=== PATIENT | female | born 1960 | race Caucasian/White ===

== ENCOUNTER 2018-02-07 07:54 | Day surgery (SDC) | payer OTHER ==
--- NOTE | 2018-02-05 11:40 | EKG ---
Test Date: 2018-02-05 Test Time: 10:39:55 Regulatory Assistant: CHELSIE MEASUREMENT RESULTS: Intervals: Rate: 67 NC: 128 QRSD: 80 QT: 446 QTc: 471 [place]: P: 54 NC: 128 QRS: 18 T: 20 INTERPRETIVE STATEMENTS: Normal sinus rhythm Normal ECG Compared to ECG 06/03/2006 13:14:24 Sinus bradycardia no longer present Electronically Signed On 02-05-18 11:39:23 PHOTOGRAMMETRY AIRPLANE PILOT by Perry Jay
[2018-02-07] MEDS: Ringers Lactate 1,000 ML IV ONE ×2 (08:36→10:23)
[2018-02-07] MEDS ORDERED: OXYMETAZOLINE HCL 0.05% 15ML NAS ONE ×4 (08:40→10:27)
[2018-02-07] MEDS ORDERED: LIDOCAINE 2% MPF 5 ML VIAL ONE (10:11)
[2018-02-07] MEDS ORDERED: FENTANYL CITR 250 MCG/5 ML ONE (10:11)
[2018-02-07] MEDS ORDERED: DEXAMETHASONE 10 MG/ML VIAL ONE (10:11)
[2018-02-07] MEDS ORDERED: ROCURONIUM 50 MG/5 ML VIAL IV ONE (10:11)
[2018-02-07] MEDS ORDERED: PROPOFOL 200 MG/20 ML VIAL IV ONE (10:11)
[2018-02-07] MEDS ORDERED: MIDAZOLAM HCL 2 MG/2 ML INJ ONE (10:11)
[2018-02-07] MEDS ORDERED: LIDOCAINE 1% W/EPI 1:100,000 MDV 50 ML VIAL ONE (10:27)
[2018-02-07] MEDS ORDERED: NA CHLORIDE 0.9% 250 ML ONE (10:27)
[2018-02-07] MEDS ORDERED: GLYCOPYRROLATE 0.2 MG/ML SYR ONE ×3 (11:04→11:35)
[2018-02-07] MEDS ORDERED: Ringers Lactate 1,000 ML IV ONE (11:12)
[2018-02-07] MEDS ORDERED: EPINEPHRINE/PF 1 MG/ML AMP ONE (11:34)
[2018-02-07] MEDS ORDERED: NEOSTIGMINE 1 MG/ML -5 ML SYRINGE ONE (11:41)
--- NOTE | 2018-02-07 11:44 | P.BOP ---
Preoperative diagnosis: septal deviation, turbinate hypertrophy, nasal obstruction Postoperative diagnosis: same Primary procedure: septoplasty Secondary procedure: ITR School Librarian: NONE,NONE Estimated blood loss: 20ml Specimen: septal bone/cartilage Anesthesia: General Implants: none Fluids & blood products: crystalloid 700ml Transferred to: Recovery Room Condition: Good
[2018-02-07] MEDS: MORPHINE 4 MG/ML SYR ONE ×4 (11:57→12:12)
[2018-02-07] MEDS ORDERED: MEPERIDINE HCL 25 MG/0.5 ML ONE (12:30)
[2018-02-07] MEDS ORDERED: HYDROCODONE/APAP 5/325 MG TAB ONE (13:33)
--- NOTE | 2018-02-08 00:20 | OP ---
Date of Procedure: 02/07/2018 Surgeon: Mariluz Aguilera MD Preoperative Diagnoses: Septal deviation. Turbinate hypertrophy. Nasal obstruction. Postoperative Diagnoses: Septal deviation. Turbinate hypertrophy. Nasal obstruction. Procedure Performed: Septoplasty with submucous resection of bilateral inferior turbinates. Description Of Procedure: The patient was placed under general anesthesia via oral endotracheal tube . The head of bed was turned to 90 degrees. The nasal hairs were trimmed and the septum and turbina keesha were injected with 1% lidocaine with epinephrine. A total of 4.5 mL was used and the nasal cavit y was packed with Afrin-soaked pledgets. The patient's nose was prepped and draped in standard fashi on for nasal surgery. A nasal speculum was used to perform a nasal exam. A left-sided hemitransfixi on incision was made and bilateral septal flaps were elevated using a Mariana elevator, taking care to avoid tears or lacerations in the mucosa. After elevation, a left inferior septal spur was removed by removal of a small amount of cartilage and bone using the Moca elevator, Silvano and Gibran rongeur. The bony cartilaginous junction was then identified and and portion of the bony s eptum, which was deviated superiorly to the right was removed with care. After this removal, the sep joya flaps were replaced and a repeat nasal exam was performed. The septum appeared to be within the midline. Afrin-soaked pledgets were placed between the septal flaps to aid in hemostasis and attenti on was turned toward the inferior turbinates. A small stab incision was made in the head of the left turbinate and a Mariana elevator was used to develop a submucosal pocket. The microdebrider with inf erior turbinate blade was then used to remove excessive soft tissue, taking care to preserve the muco wilmer lining of the turbinate. After adequate removal, similar procedure was performed on the right si de. The Thorpe elevator was then used to down fracture the inferior turbinates bilaterally in order to optimize the patient's nasal airway. Attention was then returned to the septum. After removal o f pledgets, there was persistent oozing posteriorly along the cut edges of the bone and an epinephrin e-soaked pledget was placed in this area for several minutes to aid in hemostasis. After removal, oo zing was minimum and the hemitransfixion incision was closed using a 5-0 fast-absorbing gut. A 5-0 p aubree gut on a small Terence needle was used to place mattressing sutures within the septum. Prior to c losure of the incision, a portion of the removed cartilage was morselized using a mallet and cartilag e gardening supervisor and the cartilage was replaced into the cartilaginous defect in order to reduce risk of per foration or flail septum. The inferior turbinate incisions were left open. The nasopharynx was thor oughly suctioned. Due to risk of hematoma with oozing, a 15 blade was used to make a small stab inci deshawn in the posterior aspect of the right mucosal flap as a drainage hole and no Neil splints were p laced. The patient was then returned to care of anesthesia for awakening, extubation in the operatin g room, which proceeded without difficulty. Complications: None. Implants: None. Disposition: Patient will be discharged home with standard nasal precautions and follow up with Dr. Aguilera in 12-14 days after surgery. THIAGO Voice ID: [id number] Report ID: [id number]
== END 2018-02-07 14:45 | disposition home or self-care (01) ==
LOC: OR 07:54
PROVIDERS: ATTEND Otolaryngology
PROC: 09BM8ZZ Excision of Nasal Septum, Via Natural or Artificial Opening Endoscopic (ICD-10-PCS; principal; 2018-02-07 09:30)
DX: J34.2 Deviated nasal septum (principal); J34.3 Hypertrophy of nasal turbinates; J34.89 Other specified disorders of nose and nasal sinuses
CPT/HCPCS: 88300; 93005; J0171; J1100; J2175; J2250; J2704; J2710; J3010

== ENCOUNTER 2020-03-18 08:50 | Emergency (ER) | payer OTHER ==
--- NOTE | 2020-03-18 09:26 | ER ---
Nurse's Notes [facility] Name: Sara Rdz Age: 60 yrs Sex: Female : 1960 Arrival Date: 03/18/2020 Time: 08:52 Bed 20 Private MD: Indra Mayer Diagnosis: Pain in right shoulder Presentation: 03/18 09:04 Chief complaint: Patient states: "my right shoulder and arm have been giving me a jd3 problem for about 3 days now. I tried to get an appointment, but my doctor is out of town. last time this happened it was bursitis and I got a steroid shot and was feeling better.". Coronavirus screen: At this time, the client does not indicate any symptoms associated with coronavirus-19. Ebola Screen: Patient negative for fever greater than or equal to 101.5 degrees Fahrenheit, and additional compatible Ebola Virus Disease symptoms. Initial Sepsis Screen: Does the patient meet any 2 criteria? No. Patient's initial sepsis screen is negative. Does the patient have a suspected source of infection? No. Patient's initial sepsis screen is negative. Risk Assessment: Do you want to hurt yourself or someone else? Patient reports no desire to harm self or others. Onset of symptoms was March 15, 2020. 09:04 Method Of Arrival: Ambulatory jd3 09:04 Acuity: ALEJANDRO 4 jd3 Historical: - Allergies: 09:07 No Known Allergies; jd3 - Home Meds: 09:07 Etodolac Oral [Active]; Doxepin Oral [Active]; Hydroxyzine Oral [Active]; jd3 - PMHx: 09:07 None; jd3 - PSHx: 09:07 Tonsillectomy; jd3 - Immunization history:: Adult Immunizations up to date. - Social history:: Smoking status: Patient denies any tobacco usage or history of. Screenin:09 Abuse screen: Denies threats or abuse. Nutritional screening: No deficits noted. jd3 Tuberculosis screening: No symptoms or risk factors identified. Fall Risk Ambulatory Aid- None/Bed Rest/Nurse Assist (0 pts). Gait- Normal/Bed Rest/Wheelchair (0 pts) Mental Status- Oriented to own ability (0 pts). Total Singh Fall Scale indicates No Risk (0-24 pts). Assessment: 09:08 General: Appears in no apparent distress. uncomfortable, Behavior is calm, cooperative, jd3 appropriate for age. Pain: Complains of pain in right shoulder Pain radiates to right arm Quality of pain is described as radiating, sharp. Neuro: Level of Consciousness is awake, alert, obeys commands, Oriented to person, place, time, situation. Cardiovascular: Denies chest pain, Capillary refill < 3 seconds Patient's skin is warm and dry. Respiratory: Airway is patent Respiratory effort is even, unlabored, Respiratory pattern is regular, symmetrical, Denies cough, shortness of breath. GI: No signs and/or symptoms were reported involving the gastrointestinal system. : No signs and/or symptoms were reported regarding the genitourinary system. EENT: No signs and/or symptoms were reported regarding the EENT system. Derm: Skin is intact, Skin is dry, Skin is normal, Skin temperature is warm. Musculoskeletal: Circulation, motion, and sensation intact. Range of motion: intact in all extremities. 10:05 Reassessment: Patient appears in no apparent distress at this time. Patient and/or jd3 family updated on plan of care and expected duration. Pain level reassessed. Patient is alert, oriented x 3, equal unlabored respirations, skin warm/dry/pink. Patient states feeling better. Vital Signs: 09:08 BP 135 / 75; Pulse 80; Resp 16 S; Temp 97.7(TE); Pulse Ox 99% on R/A; Weight 69.85 kg j (R); Height 5 ft. 0 in. (152.40 cm) (R); Pain 10/10; 09:08 Body Mass Index 30.08 (69.85 kg, 152.40 cm) [facility] ED Course: 08:52 Patient arrived in ED. ag5 08:52 Indra Mayer MD is Private Physician. ag5 08:56 Steve Watt MD is Attending Physician. tw4 09:04 Cb Perales RN is Primary Nurse. jd3 09:06 Triage completed. jd3 09:08 Arm band placed on. jd3 09:09 Patient has correct armband on for positive identification. Bed in low position. Call [facility] light in reach. Side rails up X 1. Adult w/ patient. Pulse ox on. NIBP on. 09:26 Indra Mayer MD is Referral Physician. tw4 10: No provider procedures requiring assistance completed. Patient did not have IV access jd3 during this emergency room visit. Administered Medications: : Drug: traMADol 50 mg Route: PO; jd3 10: Follow up: Response: No adverse reaction; RASS: Alert and Calm (0) jd3 : Drug: SOLU-Medrol 125 mg Route: IM; Site: right deltoid; jd3 10: Follow up: Response: No adverse reaction jd3 Outcome: : Discharge ordered by . tw4 10: Discharged to home ambulatory, with family. jd3 10: Condition: stable 10: Discharge instructions given to patient, Instructed on discharge instructions, follow up and referral plans. medication usage, Demonstrated understanding of instructions, follow-up care, medications, Prescriptions given X 1. 10: Patient left the ED. jd3 Signatures: Cb Perales RN RN jd3 Steve Watt MD MD tw4 Steve Asher 5 Corrections: (The following items were deleted from the chart) : 10: Response: No adverse reaction jd3 jd3
--- NOTE | 2020-03-18 09:27 | EDPHYS ---
Physician Documentation [facility] Name: Sara Rdz Age: 60 yrs Sex: Female : 1960 Arrival Date: 03/18/2020 Time: 08:52 Bed 20 Private MD: Indra Mayer ED Physician Steve Watt HPI: 03/18 09:30 This 60 yrs old Female presents to ER via Ambulatory with complaints of tw4 Shoulder Pain. 09:30 The patient or guardian complains of pain. right shoulder. Context: The problem was tw4 sustained at home. Onset: The symptoms/episode began/occurred today. Modifying factors: the symptoms are alleviated by nothing. The symptoms are aggravated by lifting weight, movement. Associated signs and symptoms: The patient has no apparent associated signs or symptoms. Severity of symptoms: At their worst the symptoms were moderate, in the emergency department the symptoms are unchanged. The patient has not experienced similar symptoms in the past. Historical: - Allergies: 09:07 No Known Allergies; jd3 - Home Meds: 09:07 Etodolac Oral [Active]; Doxepin Oral [Active]; Hydroxyzine Oral [Active]; jd3 - PMHx: 09:07 None; jd3 - PSHx: 09:07 Tonsillectomy; jd3 - Immunization history:: Adult Immunizations up to date. - Social history:: Smoking status: Patient denies any tobacco usage or history of. ROS: 09:30 Constitutional: Negative for fever, chills, and weight loss, Eyes: Negative for injury, tw4 pain, redness, and discharge, Cardiovascular: Negative for chest pain, palpitations, and edema, Respiratory: Negative for shortness of breath, cough, wheezing, and pleuritic chest pain, Abdomen/GI: Negative for abdominal pain, nausea, vomiting, diarrhea, and constipation, Back: Negative for injury and pain, Skin: Negative for injury, rash, and discoloration, Neuro: Negative for headache, weakness, numbness, tingling, and seizure. 09:30 MS/extremity: Positive for injury or acute deformity, decreased range of motion, swelling, tenderness. Exam: 09:30 Constitutional: This is a well developed, well nourished patient who is awake, alert, tw4 and in no acute distress. Head/Face: Normocephalic, atraumatic. Chest/axilla: Normal chest wall appearance and motion. Nontender with no deformity. No lesions are appreciated. Cardiovascular: Regular rate and rhythm with a normal S1 and S2. No gallops, murmurs, or rubs. Normal PMI, no JVD. No pulse deficits. Respiratory: Lungs have equal breath sounds bilaterally, clear to auscultation and percussion. No rales, rhonchi or wheezes noted. No increased work of breathing, no retractions or nasal flaring. Abdomen/GI: Soft, non-tender, with normal bowel sounds. No distension or tympany. No guarding or rebound. No evidence of tenderness throughout. Skin: Warm, dry with normal turgor. Normal color with no rashes, no lesions, and no evidence of cellulitis. 09:30 Musculoskeletal/extremity: Extremities: noted in the anterior aspect of right shoulder: decreased ROM, pain. Vital Signs: 09:08 BP 135 / 75; Pulse 80; Resp 16 S; Temp 97.7(TE); Pulse Ox 99% on R/A; Weight 69.85 kg jd3 (R); Height 5 ft. 0 in. (152.40 cm) (R); Pain 10/10; 09:08 Body Mass Index 30.08 (69.85 kg, 152.40 cm) jd3 MDM: 09:02 Patient medically screened. tw4 09:30 Data reviewed: vital signs, nurses notes. Data interpreted: Pulse oximetry: tw4 Interpretation: normal. Counseling: I had a detailed discussion with the patient and/or guardian regarding: the historical points, exam findings, and any diagnostic results supporting the discharge/admit diagnosis. Special discussion: I discussed with the patient/guardian in detail that at this point there is no indication for admission to the hospital. It is understood, however, that if the symptoms persist or worsen the patient needs to return immediately for re-evaluation. 03/18 09:25 Order name: Dariela; Complete Time: 09:41 tw4 Administered Medications: 09:29 Drug: traMADol 50 mg Route: PO; jd3 10:06 Follow up: Response: No adverse reaction; RASS: Alert and Calm (0) jd3 09:29 Drug: SOLU-Medrol 125 mg Route: IM; Site: right deltoid; jd3 10:06 Follow up: Response: No adverse reaction jd3 Disposition: 03/18/20 09:26 Discharged to Home. Impression: Pain in right shoulder. - Condition is Stable. - Discharge Instructions: Joint Pain, Musculoskeletal Pain, Shoulder Pain. - Prescriptions for Medrol (M[place]us) 4 mg Oral Tablets, Dose Pack - take 1 tablet by ORAL route as directed - follow package instructions; 1 packet. - Medication Reconciliation Form, Thank You Letter, Antibiotic Education, Prescription Opioid Use form. - Follow up: Indra Mayer MD; When: Upon discharge from the Emergency Department; Reason: Recheck today's complaints, Continuance of care, Re-evaluation by your physician. - Problem is new. - Symptoms have improved. Signatures: Cb Perales RN RN jd3 Steve Watt MD MD tw4 Corrections: (The following items were deleted from the chart) 10:06 09:26 03/18/2020 09:26 Discharged to Home. Impression: Pain in right shoulder. jd3 Condition is Stable. Forms are Medication Reconciliation Form, Thank You Letter, Antibiotic Education, Prescription Opioid Use. Follow up: Indra Mayer; When: Upon discharge from the Emergency Department; Reason: Recheck today's complaints, Continuance of care, Re-evaluation by your physician. Problem is new. Symptoms have improved. tw4
[2020-03-18] MEDS ORDERED: METHYLPREDNISOLONE 125 MG INJ ONE (09:38)
[2020-03-18] MEDS ORDERED: TRAMADOL HCL 50 MG TAB ONE (09:40)
[2020-03-18 10:11] VITALS: BP 135/75; TEMP 97.7; O2SAT 99
== END 2020-03-18 10:06 | disposition home or self-care (01) ==
LOC: ER 08:50
DX: M25.511 Pain in right shoulder (principal)
CPT/HCPCS: 96372; 99283; J2930